=== PATIENT | female | born 1970 | race Caucasian/White ===

== ENCOUNTER 2017-12-13 19:01 | Emergency (ER) | payer OTHER ==
[2017-12-13 19:07] VITALS: BP 136/92
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
== END 2017-12-13 21:19 | disposition home or self-care (01) ==
LOC: ER 19:01
DX: S16.1XXA Strain of muscle, fascia and tendon at neck level, initial encounter (principal); R51 Headache; V49.40XA Driver injured in collision with unspecified motor vehicles in traffic accident, initial encounter; F17.200 Nicotine dependence, unspecified, uncomplicated; H53.8 Other visual disturbances
CPT/HCPCS: 70450; 72125; 99284